=== PATIENT | female | born 1945 | race Caucasian/White ===

== ENCOUNTER 2018-12-23 15:45 | Observation (INO) ==
[2018-12-23] MEDS ORDERED: 0.9 % Sodium Chloride 1,000 ML IVC ONE ×2 (16:34→20:40)
--- NOTE | 2018-12-23 17:09 | Emergency Department Note ---
Disposition Clinical Impression: Dehydration Acute renal failure Qualifiers: Acute renal failure type: unspecified Qualified Code(s): N17.9 - Acute kidney failure, unspecified Diarrhea Qualifiers: Diarrhea type: unspecified type Qualified Code(s): R19.7 - Diarrhea, unspecified Abdominal pain Qualifiers: Abdominal location: generalized Qualified Code(s): R10.84 - Generalized abdominal pain Disposition: Admitted As Inpatient Condition: Fair Referrals: Elpidio Iglesias DO [Primary Care Provider] - Forms: ED Satisfaction Letter, Work/School Release Time of Disposition: 20:45 General Adult HPI - General Chief complaint: ED Abdominal Pain Stated complaint: Diahrrea Time Seen by Provider: 12/23/18 15:55 Nursing Notes Reviewed: Yes Vital Signs Reviewed: Yes - History of Present Illness HPI Narrative: Presents with diarrhea for the last 4 days and the patient had been on 2 different antibiotics for urinary tract infection as well as for a tooth infection and it sounds like one was a cephalosporin antibiotic which she is not sure the name and I will recheck to see if I can find this within the records and she does have some generalized abdominal cramping which is intermittent and present for the last 4 days and she denies any fevers, vomiting, blood in the stool. She has been having about 15-20 stools per day. Has not yet given a stool sample for Clostridium difficile. Social history: No smoking or alcohol. She is here with her daughter Pain Scale: 5 - Related Data Home Medications Medication Instructions Recorded Confirmed Amlodipine [Norvasc] 5 mg PO DAILY 02/07/15 12/23/18 Mirapex 0.25 mg PO HS 11/02/16 12/23/18 Losartan/Hydrochlorothiazide 1 each PO DAILY 12/23/18 12/23/18 [Losartan-Hctz 100-12.5 mg Tab] Allergies Allergy/AdvReac Type Severity Reaction Status Date / Time acetaminophen [From Percocet] Allergy Headache Verified 11/02/16 19:48 oxycodone [From Percocet] Allergy Headache Verified 11/02/16 19:48 Penicillins Allergy Headache Verified 11/02/16 19:48 Sulfa (Sulfonamide Allergy Hives Verified 11/02/16 19:48 Antibiotics) All systems ED: reviewed and negative except as stated. 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 EYES: PERRL, no scleral icterus. NOSE: The nose is normal in appearance without rhinorrhea RESP: Normal chest excursion with respiration; breath sounds clear and equal bilaterally; no wheezes, rhonchi, or rales CARD: Regular rhythm, without murmurs, rub or gallop ABD: Non-distended, non- mild generalized abdominal pain but the entire abdomen is soft without rigidity, rebound or guarding. Normal appearance SKIN: Normal for age and race; warm and dry; no apparent lesions - General General appearance: alert Course Vital Signs Temperature 98.3 F 12/23/18 15:50 Pulse Rate 115 12/23/18 15:50 Respiratory Rate 16 12/23/18 15:50 Blood Pressure 111/53 12/23/18 15:50 O2 Sat by Pulse Oximetry 96 12/23/18 15:50 Temperature 98.3 F 12/23/18 16:10 Pulse Rate 115 12/23/18 16:10 Respiratory Rate 16 12/23/18 16:10 Blood Pressure 111/53 12/23/18 16:10 O2 Sat by Pulse Oximetry 99 12/23/18 17:04 Oxygen Delivery Oxygen Delivery Room Air Medical Decision Making - [facility] Narrative Medical decision making narrative: Labs including C. difficile, results pending. IV fluids 1708 I did review the test results showing leukocytosis, low serum bicarbonate, elevated lactate and acute renal failure likely from prerenal from dehydration/hypovolemia. The patient will be presumptively treated for Clost ridium difficile with oral vancomycin and in addition the stool that she brought in from home will be sent for the C. difficile toxin. I did speak with Dr. Max who accepted the patient for admission. The patient did receive 1 L IV fluid and I did write for second liter IV fluid as she has not urinated yet on my recheck of her just a few minutes ago. 2043 - Medical Records Medical records reviewed: Yes I reviewed the patient's medical records. - Lab Data Lab results reviewed: Yes I reviewed the patient's lab results. Result diagrams: 12/23/18 17:01 12/23/18 17: Lab Results 12/23/18 12/23/18 12/23/18 Range/Units 17:01 17:01 17:01 WBC 16.9 H (4.3-11.1) K/mcL RBC 4.71 (3.82-4.97) M/mcL Hgb 13.0 (11.5-15.4) g/dL Hct 39.7 (35.3-44.9) % MCV 84.3 (83.0-100.0) fL MCH 27.6 L (28.0-33.3) pg MCHC 32.7 (31.6-35.5) g/dL RDW 15.9 H (11.5-14.5) % Plt Count 346 (140-400) K/mcL MPV 11.2 (9.4-12.4) fL Immature Gran % 0.5 (0-4) % Seg Neutrophils % 81.5 % Lymphocytes % 8.4 % Monocytes % 9.4 % Eosinophils % 0.0 % Basophils % 0.2 % Neutrophils # 13.8 H (1.6-8.9) K/mcL Lymphocytes # 1.4 (0.6-4.6) K/mcL Monocytes # 1.6 H (0.0-1.3) K/mcL Eosinophils # 0.0 (0.0-0.6) K/mcL Basophils # 0.0 (0.0-0.2) K/mcL Sodium 132 L (136-145) mEq/L Potassium 3.5 (3.5-5.1) mEq/L Chloride 93 L (98-107) mEq/L Carbon Dioxide 17 L (23-29) mEq/L BUN 25 H (8-23) mg/dL Creatinine 1.26 H (0.60-1.20) mg/dL Est GFR ( Amer) 51 L (> 60) Est GFR (Non-Af Amer) 42 L (> 60) BUN/Creatinine Ratio 20 (6-26) Glucose 128 H (70-105) mg/dL Calculated Osmolality 280 (280-300) Lactic Acid 2.8 H (0.5-2.2) mmol/L Calcium 9.5 (8.6-10.3) mg/dL Total Bilirubin 0.8 (0.3-1.0) mg/dL Direct Bilirubin 0.2 (0.0-0.2) mg/dL Indirect Bilirubin 0.6 (0.0-1.2) mg/dL AST 15 (13-39) Units/L ALT 15 (7-52) Units/L Alkaline Phosphatase 77 (34-104) Units/L Serum Total Protein 7.8 (6.4-8.9) g/dL Albumin 4.3 (3.5-5.7) g/dL Globulin 3.5 (2.4-3.5) g/dL Albumin/Globulin Ratio 1.2 (1.1-2.2) Lipase 14 (11-82) Units/L
[2018-12-23 17:26] LABS: Basophils % 0.2 %; Hematocrit 39.7 % (35.3-44.9); Immature Granulocytes % 0.5 % (0-4); Lymphocytes # 1.4 K/mcL (0.6-4.6); Lymphocytes % 8.4 %; Mean Corpuscular HGB Conc 32.7 g/dL (31.6-35.5); Mean Corpuscular Hemoglobin 27.6 pg (28.0-33.3); Mean Corpuscular Volume 84.3 fL (83.0-100.0); Mean Platelet Volume 11.2 fL (9.4-12.4); Monocytes # 1.6 K/mcL (0.0-1.3); Monocytes % 9.4 %; Neutrophils # 13.8 K/mcL (1.6-8.9); Platelet Count 346 K/mcL (140-400); Red Blood Count 4.71 M/mcL (3.82-4.97); Red Cell Distribution Width 15.9 % (11.5-14.5); Segmented Neutrophils % 81.5 %; White Blood Count 16.9 K/mcL (4.3-11.1)
[2018-12-23 17:37] LABS: Albumin 4.3 g/dL (3.5-5.7); Albumin/Globulin Ratio 1.2 (1.1-2.2); Bilirubin,Direct 0.2 mg/dL (0.0-0.2); Bilirubin,Indirect 0.6 mg/dL (0.0-1.2); Bilirubin,Total 0.8 mg/dL (0.3-1.0); Calcium 9.5 mg/dL (8.6-10.3); Globulin 3.5 g/dL (2.4-3.5); Potassium 3.5 mEq/L (3.5-5.1); Total Protein 7.8 g/dL (6.4-8.9)
[2018-12-23] MEDS ORDERED: Naloxone 0.4 MG/ML INJ IVP PRN (21:06)
[2018-12-23] MEDS ORDERED: Ondansetron ODT 4 MG TAB.RAPDIS SL PRN (21:06)
--- NOTE | 2018-12-23 21:32 | Internal Med History&Physical ---
Date of Encounter: 12/24/18 Time of Encounter: 21:25 Internal Medicine - H&P: HPI Chief complaint: diarrhea Admitted From: Home History of present illness: Ms. Dillard is a 73 year old elderly functional independent female with past medical history of hypertension, chronic back pain on chronic Kenalog shots BL hips every 6 weeks for over 5 years presented to the ED for diarrhea. [id number] encounter occurred at 920pm. Patient stated that 2 weeks ago patient was found to have a dental abscess and was managed by the dentist and was given clindamycin which the patient completed the course. Patient then subsequently developed diarrhea for 3 days with nausea and vomiting subsided and resolved. Patient then Thursday night unclear of what was ingested that day developed sudden onset of progressive diarrhea that is nonbloody <50 ml amount of formed brown stool with frequency around 20 times daily. Patient also stated that she has been having a low appetite, right lower quadrant abdominal pain sharp exacerbated with palpation and chills. No fever, night sweats, chest pain, shortness of breath, dysuria. Patient subsequently reported going to the PCP where she had a episode of vomiting after drinking pepsi. Patient continues E due to continued straining to go to the bathroom around 20 times daily and low appetite. Last colonoscopy was done around 10 years ago that was normal. Patient's family history was reviewed significant for father colon cancer. No abdominal surgeries in the past. Patient denied smoking, drinking and drugs lives independent at home able to do all IADL and ADL. CODE STATUS was discussed with family present at bedside and proceeded with a DNR/DNI in CODE BLUE scenario. Patient was agreeable for intubation only if a pulses is present. Past Med Surg Social Fam HX - Past Medical History Medical history: DVT, hypertension Additional medical history: RLS, BACK PAIN Psychiatric history: no psych history - Past Surgical History Surgical History: breast surgery, other Additional surgical history: left foot surgery, neck, back, knee replacement with infection x4 - Social History Smoking Status: Never smoker Smokeless Tobacco Status: No Alcohol use: none Drug use: none - Family History Mother Family Member Ethnicity: Non- Living Status: Hx Family Cardiac Disorders: Yes Hx Family Respiratory Disorders: Yes Hx Family Cancer: Yes Hx Family GI Disorders: Yes Hx Family Endocrine Disorder: No Hx Family Neuromuscular Disorders: No Hx Family Neurologic Disorders: No Hx Family HEENT Disorders: No Hx Family Autoimmune Disorders: No Father Living Status: Internal Medicine - H&P: Meds Amlodipine Besylate 5 mg PO DAILY 12/23/18 [History] Aspirin [Lo-Dose Aspirin EC] 81 mg PO DAILY 12/23/18 [History] Fesoterodine Fumarate [Toviaz] 8 mg PO DAILY 12/23/18 [History] Losartan/Hydrochlorothiazide [Losartan-Hctz 100-12.5 mg Tab] 1 tab PO DAILY 12/23/18 [History] Pramipexole [Mirapex] 0.5 mg PO DAILY 12/23/18 [History] Tramadol HCl [Ultram] 50 mg PO TID PRN 12/23/18 [History] Allergy/AdvReac Type Severity Reaction Status Date / Time oxycodone [From Percocet] Allergy Headache Verified 12/23/18 22:24 Penicillins Allergy Headache Verified 12/23/18 22:24 Sulfa (Sulfonamide Allergy Hives, Verified 12/23/18 22:24 Antibiotics) SWELLING, DIFFICULTY BREATHING All Systems PM: A 10-system review of systems was performed and is negative for pertinent findings except as documented above in the HPI. Review of systems: General: + unintentional weightloss, No fever, No night sweats. Head: No headahce, No injury. Ears: No discharge, No earache Eyes: No drainage, No eye pain Mouth and Throat: No new ulcers, No pain Nose and Sinus: No new congestion, No pain, Respiratory: No cough, No sputum production, No dyspnea Cardiovascular: No chest pain, No palpitations. Gastrointestinal: No nausea, + vomiting. + abdominal pain Genital Tract: No discharge, No pain Urinary Tract: No dysuria, No discharge. MSK: No new/worsening joint pain or new/worsening muscle ache. Endocrine: No cold intolerance, No polyuria Psychological: No suicidal, No homocidal ideation. - Constitutional Vitals: Temp Pulse Resp BP Pulse Ox 98.3 F 115 16 111/53 99 12/23/18 16:10 12/23/18 16:10 12/23/18 16:10 12/23/18 16:10 12/23/18 17:04 Exam: General Appearance: Appearing as age, well-nourished in no acute distress. Head: Atraumatic normocephalic Skin: Normal texture, normal turgor, warm, dry. Dry mucous membranes Eyes: Conjunctivae pale with no erythema, drainage, or ulcers. Anicteric. Neck: No Lymphadenopathy in the anterior/posterior cervical chain. No thyromegaly, masses or ulcers. Trachea midline. Heart: Tachycardia, grade 2 systolic murmurs. Capillary refill 5 seconds Lungs: No accessory muscle usage, lungs clear to auscultation bilaterally, no wheezes or crackles. Extremities: No pitting edema, clubbing, cyanosis, or ulcers. Abdomen: Non-distended, normoactive bowel sounds. Left lower quadrant pain with negative McBurney tenderness and no peritoneal signs. no hepatomegally. No guarding. Neuro: AOx3 with no new sensory loss or focal deficits. MSK: Strength 5/5 Upper extremity equal bilaterally. Strength 5/5 Lower extremity equal bilaterally Internal Med - H&P Results - Labs CBC & Chem 7: 12/23/18 17:01 12/23/18 17:01 Labs: Short CBC 12/23/18 Range/Units 17:01 WBC 16.9 H (4.3-11.1) K/mcL Hgb 13.0 (11.5-15.4) g/dL Hct 39.7 (35.3-44.9) % Plt Count 346 (140-400) K/mcL Neutrophils # 13.8 H (1.6-8.9) K/mcL BMP 12/23/18 17:01 Sodium 132 L Potassium 3.5 Chloride 93 L Carbon Dioxide 17 L BUN 25 H Creatinine 1.26 H Glucose 128 H Calcium 9.5 Liver Function 12/23/18 Range/Units 17:01 Total Bilirubin 0.8 (0.3-1.0) mg/dL Direct Bilirubin 0.2 (0.0-0.2) mg/dL AST 15 (13-39) Units/L ALT 15 (7-52) Units/L Alkaline Phosphatase 77 (34-104) Units/L Albumin 4.3 (3.5-5.7) g/dL - Summary of Assessment and Plan Summary of Assessment and Plan: 1.Acute diarrhea with severe dehydration: Concern for infectious cause due to antibiotic intake. GI PCR pending. Lactic acid improved with fluid resuscitation. 2.Acute Renal Failure: Secondary to diarrhea IVF and recheck. 3.Leukocytosis: severely dehydrated not meeting SIRS or GI infection. PCR, blood culture pending. Recheck after resuscitation. 4.Hyperglycemia: ISS Chronic medical conditions: HTN: held RLS: continue pramopexole Chronic pain: on chronic steroid shots. DVT:Heparin Dispo: expected stay for 2 days. - Time Spent With Patient Total time spent is greater than 38 minutes 50% in coordination of care (as documented) at patient's floor/unit and/or counseling patient: Greater than 35 minutes
[2018-12-23] MEDS: Vancomycin Oral Soln 125 MG/2.5 ML UDC PO SCH (22:44)
[2018-12-23] MEDS: 0.9 % Sodium Chloride 1,000 ML IVC SCH (23:09)
[2018-12-24 04:25] LABS: Hematocrit 31.3 % (35.3-44.9); Mean Corpuscular HGB Conc 32.3 g/dL (31.6-35.5); Mean Corpuscular Hemoglobin 27.4 pg (28.0-33.3); Mean Corpuscular Volume 85.1 fL (83.0-100.0); Mean Platelet Volume 11.1 fL (9.4-12.4); Platelet Count 264 K/mcL (140-400); Red Blood Count 3.68 M/mcL (3.82-4.97); Red Cell Distribution Width 15.9 % (11.5-14.5); White Blood Count 12.2 K/mcL (4.3-11.1)
[2018-12-24 04:29] LABS: VBG HCO3 18 mEq/L (21-27); VBG PCO2 40 mmHg (41-51); VBG PH 7.26 pH Units (7.32-7.42); VBG PO2 62 mmHg (25-50)
[2018-12-24 04:33] LABS: Hemoglobin 10.1 g/dL (11.5-15.4)
[2018-12-24 04:35] LABS: INR 1.2; Prothrombin Time 13.8 Seconds (9.4-12.1)
[2018-12-24 04:48] LABS: Alanine Aminotransferase 11 Units/L (7-52); Albumin 3.4 g/dL (3.5-5.7); Albumin/Globulin Ratio 1.3 (1.1-2.2); Alkaline Phosphatase 61 Units/L (34-104); Aspartate Amino Transferase 13 Units/L (13-39); BUN/Creatinine Ratio 30 (6-26); Bilirubin,Total 0.5 mg/dL (0.3-1.0); Blood Urea Nitrogen 19 mg/dL (8-23); Calcium 7.8 mg/dL (8.6-10.3); Carbon Dioxide 18 mEq/L (23-29); Chloride 103 mEq/L (98-107); Globulin 2.7 g/dL (2.4-3.5); Glucose 109 mg/dL (70-105); Magnesium 1.9 mg/dL (1.6-2.6); Osmolality,Calculated 281 (280-300); Phosphorous 3.2 mg/dL (2.7-4.5); Potassium 3.5 mEq/L (3.5-5.1); Sodium 134 mEq/L (136-145); Total Protein 6.1 g/dL (6.4-8.9); eGFR For African Americans > 60 (> 60); eGFR For Non-African Americans > 60 (> 60)
[2018-12-24] MEDS: Aspirin Enteric Coated 81 MG Tablet PO SCH (08:58)
[2018-12-24] MEDS: Vancomycin Oral Soln 125 MG/2.5 ML UDC PO SCH ×4 (08:58→21:29)
[2018-12-24] MEDS: 0.9 % Sodium Chloride 1,000 ML IVC SCH (09:04)
[2018-12-24] MEDS: traMADol 50 MG TABLET PO PRN ×3 (09:31→21:29)
--- NOTE | 2018-12-24 14:26 | Internal Med Progress Note ---
Hospitalist Progress Note - Encounter Date of Encounter: 12/24/18 Time of Encounter: 14:19 - Subjective Interval History: Ms. Dillard is a 73 year old female with past medical history of hypertension and chronic back pain on chronic Kenalog shots BL hips every 6 weeks for over 5 years presented to the ED with lower abdominal pain associated with diarrhea. Patient stated that 2 weeks ago patient was found to have a dental abscess and was managed by the dentist and was given Clindamycin which the patient completed the course. Patient then subsequently developed diarrhea for 3 days. Her Stool C. Diff tox came back as positive. She was admitted in the hospital and started her on IV hydration. Patient also placed on oral vancomycin. Patient still having diarrhea and looks dehydrated.. She denied any Melena / bright red blood per rectum. - Exam Vitals: Temp Pulse Resp BP Pulse Ox 97.8 F 86 16 143/67 97 12/24/18 10:45 12/24/18 10:45 12/24/18 10:45 12/24/18 10:45 12/24/18 10:45 Exam: Gen: Alert, awake, Oriented to time,place and person dry mucous membranes Chest: Diminished breath sounds B/L, No wheezing, No crackles, No rales Heart: S1S2+ RRR No murmurs Abd: Soft, mildly discomfort in lower abdomen, BS +, No organomegaly Ext: No edema, pulses are palpable, No calf tenderness Neuro : No acute focal neuro deficits noticed Skin: No rash. - Assessment and Plan (1) C. difficile colitis Current Visit: Yes Status: Acute Assessment and Plan: Still has diarrhea cont PO vancomycin Added Lactobacillus Avoid PPI Cont close monitoring IV hydration continue symptomatic and supportive care (2) Dehydration Current Visit: Yes Status: Acute Assessment and Plan: on IV hydration (3) Hypertension Current Visit: No Status: Chronic Assessment and Plan: resumed home meds will start her Losartan / HCTZ in AM - Time Spent with Patient Total time spent is greater than 50% in coordination of care (as documented) at patient's floor/unit and/or counseling patient: Internal Medicine: Result - Labs CBC & Chem 7: 12/24/18 04:11 12/24/18 04:11 Labs: Short CBC 12/23/18 12/24/18 Range/Units 17:01 04:11 WBC 16.9 H 12.2 H (4.3-11.1) K/mcL Hgb 13.0 10.1 L D (11.5-15.4) g/dL Hct 39.7 31.3 L (35.3-44.9) % Plt Count 346 264 (140-400) K/mcL Neutrophils # 13.8 H (1.6-8.9) K/mcL BMP 12/23/18 12/24/18 17:01 04:11 Sodium 132 L 134 L Potassium 3.5 3.5 Chloride 93 L 103 Carbon Dioxide 17 L 18 L BUN 25 H 19 Creatinine 1.26 H 0.63 Glucose 128 H 109 H Calcium 9.5 7.8 L Cardiac Enzymes 12/24/18 12/24/18 12/24/18 Range/Units 00:31 04:11 09:37 Troponin I < 0.03 < 0.03 < 0.03 (< 0.04) ng/mL Liver Function 12/23/18 12/24/18 Range/Units 17:01 04:11 Total Bilirubin 0.8 0.5 (0.3-1.0) mg/dL Direct Bilirubin 0.2 (0.0-0.2) mg/dL AST 15 13 (13-39) Units/L ALT 15 11 (7-52) Units/L Alkaline Phosphatase 77 61 (34-104) Units/L Albumin 4.3 3.4 L (3.5-5.7) g/dL - ABG Interpretation ABG results: PT/INR, D-dimer PT 13.8 Seconds (9.4-12.1) H 12/24/18 04:11 - Impressions Impressions Abdomen/Pelvis CT 12/23/18 20:33 IMPRESSION: Circumferential colonic wall thickening predominantly within the descending colon, sigmoid colon, and rectum but also within the ascending colon compatible with colitis. No perforation or drainable fluid collection. D/ / 12/23/2018 22:16:46 Scott Loza / alexandra Interpreting Provider: Scott Loza Consult Discharge Plan - Plan Referrals: Elpidio Iglesias DO [Primary Care Provider] - 12/31/18 11:00 am (3) Hypertension Qualifiers: Hypertension type: essential hypertension Qualified Code(s): I10 - Essential (primary) hypertension
[2018-12-24] MEDS: Lactobacillus 1 EACH CAP.SPRINK PO SCH ×2 (15:15→21:29)
[2018-12-25 05:20] LABS: Hematocrit 32.1 % (35.3-44.9); Hemoglobin 10.3 g/dL (11.5-15.4); Mean Corpuscular HGB Conc 32.1 g/dL (31.6-35.5); Mean Corpuscular Hemoglobin 27.5 pg (28.0-33.3); Mean Corpuscular Volume 85.8 fL (83.0-100.0); Mean Platelet Volume 11.5 fL (9.4-12.4); Platelet Count 269 K/mcL (140-400); Red Blood Count 3.74 M/mcL (3.82-4.97); Red Cell Distribution Width 15.7 % (11.5-14.5); White Blood Count 9.9 K/mcL (4.3-11.1)
[2018-12-25 05:40] LABS: BUN/Creatinine Ratio 26 (6-26); Blood Urea Nitrogen 12 mg/dL (8-23); Carbon Dioxide 18 mEq/L (23-29); Chloride 105 mEq/L (98-107); Glucose 91 mg/dL (70-105); Osmolality,Calculated 277 (280-300); Potassium 3.2 mEq/L (3.5-5.1); Sodium 134 mEq/L (136-145); eGFR For African Americans > 60 (> 60); eGFR For Non-African Americans > 60 (> 60)
--- NOTE | 2018-12-25 09:41 | Discharge Summary ---
Orders not resulted at time of discharge: Pending orders 12/23/18 16:33 Urinalysis Reflex Cult & Micro [URIN] Stat 12/24/18 04:00 Urinalysis reflex Microscopic [URIN] AM 0400 12/24/18 04:11 Culture,Blood [BC] Stat Date of Encounter: 12/25/18 Time of Encounter: 09:39 - Discharge Diagnosis (1) C. difficile colitis Priority: Primary Status: Acute (2) Hypertension Priority: Secondary Status: Chronic Qualifiers: Hypertension type: essential hypertension Qualified Code(s): I10 - Essential (primary) hypertension (3) Dehydration Priority: Primary Status: Resolved Hospital course: Ms. Dillard is a 73 year old female past medical history of hypertension, chronic back pain on chronic Kenalog shots BL hips every 6 weeks for over 5 years presented to the ED for diarrhea following oral antibiotics intake for a tooth infection. Patient was admitted to the hospital due to TIMOTHY, dehydration, diarrhea and colitis. C.diff positive. Patient managed with IV fluids and oral vancomycin with resolution of her acute symptoms. Patient reported during my evaluation that she is not having diarrhea, but reports urge to have a BM, when she goes to have a BM, very minimal stool comes out. Patient is hemodynamically stable to be discharged home or oral vancomycin to complete [address]/CT abd pelvis wo no iv no oral IMPRESSION: Circumferential colonic wall thickening predominantly within the descending colon, sigmoid colon, and rectum but also within the ascending colon compatible with colitis. - Time Spent with Patient Total time spent providing and/or coordinating discharge services: Time spent: Greater than 30 minutes (35) - Discharge Medications Prescriptions: New Lactobacillus [Culturelle] 1 each PO BID 10 Days #20 [email or web address] Vancomycin Oral Soln [Firvanq] 125 mg PO QID 10 Days #40 udc Continued Losartan/Hydrochlorothiazide [Losartan-Hctz 100-12.5 mg Tab] 1 tab PO DAILY Amlodipine Besylate 5 mg PO DAILY Aspirin [Lo-Dose Aspirin EC] 81 mg PO DAILY Fesoterodine Fumarate [Toviaz] 8 mg PO DAILY Pramipexole [Mirapex] 0.5 mg PO DAILY Tramadol HCl [Ultram] 50 mg PO TID PRN PRN Reason: Pain Home Medications: Amlodipine Besylate 5 mg PO DAILY 12/23/18 [History] Aspirin [Lo-Dose Aspirin EC] 81 mg PO DAILY 12/23/18 [History] Fesoterodine Fumarate [Toviaz] 8 mg PO DAILY 12/23/18 [History] Losartan/Hydrochlorothiazide [Losartan-Hctz 100-12.5 mg Tab] 1 tab PO DAILY 12/23/18 [History] Pramipexole [Mirapex] 0.5 mg PO DAILY 12/23/18 [History] Tramadol HCl [Ultram] 50 mg PO TID PRN 12/23/18 [History] Lactobacillus [Culturelle] 1 each PO BID 10 Days #20 [email or web address] 12/25/18 [Rx] Vancomycin Oral Soln [Firvanq] 125 mg PO QID 10 Days #40 udc 12/25/18 [Rx] Allergies/Adverse Reactions: Allergy/AdvReac Type Severity Reaction Status Date / Time oxycodone [From Percocet] Allergy Headache Verified 12/23/18 22:24 Penicillins Allergy Headache Verified 12/23/18 22:24 Sulfa (Sulfonamide Allergy Hives, Verified 12/23/18 22:24 Antibiotics) SWELLING, DIFFICULTY BREATHING Date of admission: 12/23/18 20:58 Primary care physician: Addi Iglesias, - Constitutional Vitals: Temp Pulse Resp BP Pulse Ox 97.8 F 79 16 131/70 96 12/25/18 06:54 12/25/18 06:54 12/25/18 06:54 12/25/18 06:54 12/25/18 06:54 Exam: Vitals: Reviewed General: Alert and oriented x4. In no distress Skin: Normal color, no rash, no lesions. HEENT: EOM, pupils equal, round and reactive. Cardiovascular: RRR, normal S1 & S2, no rubs, murmurs or gallops. Lungs: CTA b/l, no wheezes or crackles. Abdomen: Soft, non-tender, no rigidity. Normo-active bowel sounds in all 4 quadrants. Extremities: No deformity, no edema or tenderness, no joint swelling or clubbing. Neurological: Normal cognition and motor skills. Rest of the physical exam is non contributory - Patient Status Disposition: Home, Self-Care Condition: Good Functional capacity at discharge: independent ambulation Overall status at discharge: patient is progressing back to baseline - Discharge Instructions Follow Up With: Elpidio Iglesias DO [Primary Care Provider] - 12/31/18 11:00 am - Diet and Activity Activity: resume usual activities as tolerated Diet: low salt diet
[2018-12-25] MEDS: Aspirin Enteric Coated 81 MG Tablet PO SCH (09:50)
[2018-12-25] MEDS: amLODIPine 5 MG TABLET PO SCH (09:50)
[2018-12-25] MEDS: Lactobacillus 1 EACH CAP.SPRINK PO SCH ×2 (09:50→21:07)
[2018-12-25] MEDS: Losartan/HCTZ 50-12.5 TABLET PO SCH (09:51)
[2018-12-25] MEDS: Vancomycin Oral Soln 125 MG/2.5 ML UDC PO SCH ×4 (09:51→21:08)
[2018-12-25] MEDS: traMADol 50 MG TABLET PO PRN ×2 (14:25→22:43)
[2018-12-26 02:41] LABS: Bilirubin,Urine Negative (Negative); Blood,Urine Negative (Negative); Clarity,Urine Clear (Clear); Color,Urine Yellow (Yellow); Glucose,Urine (UA) Normal (Normal); Ketones,Urine 15 mg/dL (Negative); Leukocyte Esterase,Urine Trace (Negative); Nitrite,Urine Negative (Negative); Protein,Urine Trace mg/dL (Neg-Trace); Specific Gravity,Urine 1.011 (1.010-1.025); Urobilinogen,Urine Normal (Normal)
[2018-12-26 02:46] LABS: Bacteria,Urine None Seen per hpf (None-Few); Hyaline Casts,Urine None Seen per lpf (None-Few); Squamous Epithelial Cell,Urine Many per lpf (None-Few)
[2018-12-26] MEDS: Lactobacillus 1 EACH CAP.SPRINK PO SCH (08:26)
[2018-12-26] MEDS: amLODIPine 5 MG TABLET PO SCH (08:26)
[2018-12-26] MEDS: Vancomycin Oral Soln 125 MG/2.5 ML UDC PO SCH (08:27)
[2018-12-26] MEDS: Losartan/HCTZ 50-12.5 TABLET PO SCH (08:27)
[2018-12-26] MEDS: Aspirin Enteric Coated 81 MG Tablet PO SCH (08:27)
[2018-12-26 08:33] LABS: Hematocrit 35.6 % (35.3-44.9); Hemoglobin 11.4 g/dL (11.5-15.4); Mean Corpuscular Hemoglobin 27.5 pg (28.0-33.3); Mean Platelet Volume 11.2 fL (9.4-12.4); Platelet Count 312 K/mcL (140-400); Red Blood Count 4.14 M/mcL (3.82-4.97); White Blood Count 8.2 K/mcL (4.3-11.1)
[2018-12-26 08:43] LABS: BUN/Creatinine Ratio 15 (6-26); Blood Urea Nitrogen 10 mg/dL (8-23); Carbon Dioxide 20 mEq/L (23-29); Chloride 105 mEq/L (98-107); Glucose 93 mg/dL (70-105); Magnesium 2.1 mg/dL (1.6-2.6); Osmolality,Calculated 281 (280-300); Potassium 3.8 mEq/L (3.5-5.1); Sodium 136 mEq/L (136-145); eGFR For African Americans > 60 (> 60); eGFR For Non-African Americans > 60 (> 60)
--- NOTE | 2018-12-26 09:06 | Event Note ---
Date of Encounter: 12/26/18 Time of Encounter: 09:03 I have seen and evaluated the patient at bedside. patient reported having one BM yesterday evening but did not have any BM overnight and has not had any BM this morning. Reported good oral intake. Denies abdominal pain, nausea, vomiting or chest pain. Physical Exam: Vitals: Reviewed General: Alert and oriented x4. In no distress Cardiovascular: RRR, normal S1 & S2, no rubs, murmurs or gallops. Lungs: CTA b/l, no wheezes or crackles. Abdomen: Soft, non-tender, no rigidity. Normo-active bowel sounds in all 4 quadrants. Extremities: No edema Neurological: No focal neurological abnormalities Rest of the physical exam is non contributory Assessment: 1. Cdiff colitis 2. HTN 3. VTE prophylaxis 4. Dehydration (resolved) Plan patient clinically stable to be discharged home on oral vancomycin DC summary dictated yesterday. Disposition: - Discharged home.
[2018-12-26 10:57] VITALS: BP 130/73
== END 2018-12-26 12:06 | disposition home or self-care (01) ==
LOC: EMEROOARM 15:45 → 3BNU 15:45 → SUATTDRO 20:58 → 3BNU 22:49
PROVIDERS: ADMIT Family Medicine; ATTEND Internal Medicine